=== PATIENT | female | born 1980 | race Caucasian/White ===

== ENCOUNTER 2020-03-20 08:27 | Outpatient (CLI) | payer OTHER, SELFPAY ==
--- NOTE | ~2020-03-20 | US_ITS ---
EXAMINATION: US FNA w image guidance DATE: 03/20/2020 09:47 INDICATION: Right thyroid nodule. TECHNIQUE: The procedure and its benefits, risks, and benefits were discussed with the patient. Risks specifical ly discussed included bleeding. The patient verbalized understanding of the risks and agreed to proce ed. The neck was prepped and draped in the usual sterile manner. 1% lidocaine was used for local ane sthesia. 5 passes were made with a 25G needle into the lesion. Appropriate needle location was docu mented with continuous sonographic guidance. There were no immediate complications. The patient unde rstood to call the ordering physician for results after a week and a half and verbalized that underst anding. FINDINGS: Grayscale ultrasound images demonstrate needles advanced into a 2.7 cm mixed cystic and solid right t hyroid nodule for biopsy. IMPRESSION: 1. Ultrasound-guided fine needle aspiration of a right thyroid nodule. Reviewed, dictated and finalized at location A.
--- NOTE | ~2020-03-20 | US_ITS ---
EXAMINATION: US thyroid DATE: 03/20/2020 09:51 INDICATION: Right thyroid nodule. TECHNIQUE: Multiple ultrasound images of the thyroid were obtained. COMPARISON: None. FINDINGS: The right thyroid lobe measures 6.3 x 3.0 x 2.6 cm. The left thyroid lobe measures 5.7 x 2.7 x 1.9 c m. The thyroid is diffusely heterogeneous with increased vascularity. There are innumerable nodules in the thyroid, most less than 1 cm. In the right thyroid lobe, there is a 2.7 cm mixed cystic and so lid, hypoechoic, [id number] nodule with smooth margin without echogenic foci (TI-RADS TR3). IMPRESSION: 1. Thyroid nodules. Ultrasound-guided fine-needle aspiration of the largest thyroid nodule will be pe rformed. Reviewed, dictated and finalized at location A. IMPRESSION: 1. Thyroid nodules. Ultrasound-guided fine-needle aspiration of the largest thy roid nodule will be performed.
== END 2020-03-20 08:28 | disposition home or self-care (01) ==
PROVIDERS: Visit Provider Otolaryngology
DX: E04.1 Nontoxic single thyroid nodule (principal)
CPT/HCPCS: 10005; 76536; 88108; 88173; 88305